=== PATIENT | male | born 1960 | race African-American/Black ===

== ENCOUNTER 2021-08-06 11:58 | Inpatient (IN) | payer OTHER ==
[~2021-08-06] VITALS: Ht 185.4 cm; Wt 107.0 kg
[2021-08-06] MEDS ORDERED: FURO40TA5 PO (12:14)
[2021-08-06] MEDS ORDERED: POTA20TA82 PO (12:14)
[2021-08-06] MEDS ORDERED: ASPI-1497 PO (12:15)
[2021-08-06] MEDS ORDERED: ISOS5TAB4 PO (12:15)
[2021-08-06] MEDS ORDERED: HYDR-4133 PO (12:15)
[2021-08-06] MEDS ORDERED: CARV6.2548 PO (12:15)
[2021-08-06] MEDS ORDERED: ATOR10TA69 PO (12:15)
[2021-08-06 13:13] LABS: BASOPHILS % 0.6 % (0.0-2.0); EOSINOPHILS % 1.1 % (0.0-5.0); HEMATOCRIT. 38.5 % (42.0-52.0); MEAN CORPUSCULAR HEMOGLOBIN 26.8 pg (28.0-32.0); MEAN CORPUSCULAR VOLUME 85.9 fL (80.0-94.0); MEAN PLATELET VOLUME 10.4 fl (7.4-10.4); MONOCYTES % 13.9 % (2.0-8.0); NEUTROPHILS % 67.4 % (40.0-76.0); PLATELET 145 x1000/uL (130-400); RED BLOOD CELL COUNT 4.48 mill/uL (4.7-6.1); RED CELL DISTRIBUTION WIDTH 15.8 % (11.6-14.6)
[2021-08-06 13:22] LABS: CHLORIDE 106 mEq/L (98-107)
[2021-08-06 13:23] LABS: INR 1.3; PROTHROMBIN TIME 14.1 sec (9.6-11.0)
[2021-08-06] MEDS ORDERED: FUROSEMIDE 40MG/4ML VIAL IVP ONE (23:00)
[2021-08-06] MEDS ORDERED: LORAZEPAM 2MG/ML CPJ IV PRN (23:15)
[2021-08-06] MEDS ORDERED: HYDRALAZINE 20MG/ML VIAL IV PRN (23:15)
[2021-08-06] MEDS ORDERED: MAGNESIUM/ALUMINUM HYDROXIDE/SIMETHICONE 30ML UDC PO PRN (23:15)
[2021-08-06] MEDS ORDERED: HYDROCODONE/ACETAMINOPHEN 5/325MG TABLET PO PRN (23:15)
[2021-08-06] MEDS ORDERED: CLONIDINE 0.1MG TABLET PO PRN (23:15)
[2021-08-06] MEDS ORDERED: IPRATROPIUM/ALBUTEROL 0.5-3(2.5)MG/3ML NEB HHN PRN (23:15)
[2021-08-06] MEDS ORDERED: ENOXAPARIN 30MG/0.3ML SYR SUBCUT SCH (23:15)
[2021-08-06] MEDS ORDERED: MORPHINE SULFATE 2 MG/ML CPJ (NOT FOR IM USE) IV PRN (23:15)
[2021-08-06] MEDS ORDERED: GUAIFENESIN 200MG/10ML SUGAR FREE UDC PO PRN (23:15)
[2021-08-06] MEDS ORDERED: NALOXONE HCL 0.4MG/ML VIAL IV PRN (23:30)
[2021-08-07] VITALS (7 sets, daily range): BP systolic 121–147; BP diastolic 67–104
[2021-08-07] MEDS: ENOXAPARIN 30MG/0.3ML SYR SUBCUT SCH ×2 (02:09→20:48)
[2021-08-07] MEDS: ACETAMINOPHEN 325MG TABLET PO PRN ×2 (02:44→20:49)
[2021-08-07] MEDS: SODIUM CHLORIDE 0.9% INJ 3ML FLUSH IVF SCH ×3 (06:00→20:49)
[2021-08-07 07:04] LABS: HEMATOCRIT. 36.8 % (42.0-52.0); HEMOGLOBIN. 11.9 g/dL (14.0-18.0); MEAN CORPUSCULAR HEMOGLOBIN 27.5 pg (28.0-32.0); MEAN PLATELET VOLUME 9.9 fl (7.4-10.4); PLATELET 142 x1000/uL (130-400); RED BLOOD CELL COUNT 4.33 mill/uL (4.7-6.1); RED CELL DISTRIBUTION WIDTH 15.5 % (11.6-14.6)
[2021-08-07 07:14] LABS: CHLORIDE 106 mEq/L (98-107)
[2021-08-07 07:23] LABS: CREATINE KINASE 173 IU/L (39-308)
[2021-08-07 07:25] LABS: CREATINE KINASE MB FRACTION < 1.0 ng/mL (0.5-3.6)
[2021-08-07] MEDS: FUROSEMIDE 40MG/4ML VIAL IVP SCH ×2 (09:11→17:47)
[2021-08-07 14:45] LABS: PLATELET ESTIMATE NORMAL
[2021-08-07 16:59] LABS: CREATINE KINASE 170 IU/L (39-308); CREATINE KINASE MB FRACTION < 1.0 ng/mL (0.5-3.6)
[2021-08-08] VITALS: BP 146/93
[2021-08-08 04:00] VITALS: BP 131/93
[2021-08-08] MEDS: SODIUM CHLORIDE 0.9% INJ 3ML FLUSH IVF SCH ×3 (05:18→21:56)
[2021-08-08 08:00] VITALS: BP 132/82
[2021-08-08] MEDS: ENOXAPARIN 30MG/0.3ML SYR SUBCUT SCH (08:20)
[2021-08-08] MEDS: FUROSEMIDE 40MG/4ML VIAL IVP SCH ×2 (08:20→17:10)
[2021-08-08 12:00] VITALS: BP 115/81
[2021-08-08] MEDS ORDERED: ASPIRIN 81MG EC TABLET PO SCH (13:00)
[2021-08-08] MEDS: POTASSIUM CHLORIDE 20MEQ TABLET SR PO SCH (13:23)
[2021-08-08] MEDS: HYDRALAZINE HCL 10MG TABLET PO SCH ×2 (13:23→21:56)
[2021-08-08 16:00] VITALS: BP 142/94
[2021-08-08] MEDS: ISOSORBIDE DINITRATE 10MG TABLET PO SCH ×2 (17:10→17:12)
[2021-08-08] MEDS: ACETAMINOPHEN 325MG TABLET PO PRN (17:10)
[2021-08-08 20:00] VITALS: BP 133/91
[2021-08-08] MEDS: CARVEDILOL 6.25 MG TABLET PO SCH (21:55)
[2021-08-08] MEDS: ATORVASTATIN CALCIUM 10MG TABLET PO SCH (21:56)
[2021-08-09] VITALS: BP 122/78
[2021-08-09 04:00] VITALS: BP 138/92
[2021-08-09] MEDS: SODIUM CHLORIDE 0.9% INJ 3ML FLUSH IVF SCH ×3 (06:47→20:49)
[2021-08-09 08:00] VITALS: BP 131/90
[2021-08-09] MEDS: HYDRALAZINE HCL 10MG TABLET PO SCH ×2 (08:54→20:48)
[2021-08-09] MEDS: CARVEDILOL 6.25 MG TABLET PO SCH ×2 (08:54→20:49)
[2021-08-09] MEDS: ISOSORBIDE DINITRATE 10MG TABLET PO SCH ×3 (08:54→17:00)
[2021-08-09] MEDS: POTASSIUM CHLORIDE 20MEQ TABLET SR PO SCH (08:54)
[2021-08-09] MEDS: FUROSEMIDE 40MG/4ML VIAL IVP SCH ×2 (08:55→17:27)
[2021-08-09] MEDS ORDERED: LIDOCAINE HCL 1% 10 MG/ML 10ML VIAL ONE (09:32)
[2021-08-09] MEDS ORDERED: SODIUM BICARBONATE 4% (2.4MEQ) 5ML VIAL IV ONE (09:32)
[2021-08-09 12:00] VITALS: BP 132/84
[2021-08-09 16:00] VITALS: BP 109/74
[2021-08-09 20:00] VITALS: BP 122/85
[2021-08-09] MEDS: ATORVASTATIN CALCIUM 10MG TABLET PO SCH (20:48)
[2021-08-10] VITALS: BP 118/85
[2021-08-10] MEDS: DIPHENHYDRAMINE 50MG/ML VIAL IV PRN (01:46)
[2021-08-10 04:00] VITALS: BP 114/79
[2021-08-10] MEDS: SODIUM CHLORIDE 0.9% INJ 3ML FLUSH IVF SCH ×3 (05:47→21:48)
[2021-08-10 07:55] VITALS: BP 125/90
[2021-08-10] MEDS: HYDRALAZINE HCL 10MG TABLET PO SCH ×2 (08:35→21:48)
[2021-08-10] MEDS: FUROSEMIDE 40MG/4ML VIAL IVP SCH ×2 (08:35→16:41)
[2021-08-10] MEDS: ISOSORBIDE DINITRATE 10MG TABLET PO SCH ×3 (08:35→16:40)
[2021-08-10] MEDS: CARVEDILOL 6.25 MG TABLET PO SCH ×2 (08:36→21:48)
[2021-08-10] MEDS: POTASSIUM CHLORIDE 20MEQ TABLET SR PO SCH (08:36)
[2021-08-10] MEDS: DOCUSATE SODIUM 100MG CAPSULE PO PRN (08:50)
[2021-08-10 11:23] LABS: HEMATOCRIT. 37.2 % (42.0-52.0); HEMOGLOBIN. 12.1 g/dL (14.0-18.0); MEAN CORPUSCULAR HEMOGLOBIN 27.7 pg (28.0-32.0); MEAN CORPUSCULAR VOLUME 85.4 fL (80.0-94.0); MEAN PLATELET VOLUME 8.8 fl (7.4-10.4); PLATELET 133 x1000/uL (130-400); RED BLOOD CELL COUNT 4.36 mill/uL (4.7-6.1); RED CELL DISTRIBUTION WIDTH 15.7 % (11.6-14.6)
[2021-08-10 11:34] LABS: CHLORIDE 101 mEq/L (98-107)
[2021-08-10 12:00] VITALS: BP 116/74
[2021-08-10 15:53] VITALS: BP 103/73
[2021-08-10 15:59] LABS: PLATELET ESTIMATE NORMAL
[2021-08-10 20:00] VITALS: BP 110/78
[2021-08-10] MEDS: ATORVASTATIN CALCIUM 10MG TABLET PO SCH (21:48)
[2021-08-11] VITALS: BP 112/83
[2021-08-11 04:00] VITALS: BP 124/85
[2021-08-11] MEDS: SODIUM CHLORIDE 0.9% INJ 3ML FLUSH IVF SCH ×3 (06:15→21:42)
[2021-08-11 07:59] VITALS: BP 120/82
[2021-08-11] MEDS: FUROSEMIDE 40MG/4ML VIAL IVP SCH ×2 (08:42→16:12)
[2021-08-11] MEDS: ENOXAPARIN 30MG/0.3ML SYR SUBCUT SCH ×2 (08:42→21:40)
[2021-08-11] MEDS: POTASSIUM CHLORIDE 20MEQ TABLET SR PO SCH (08:42)
[2021-08-11] MEDS: HYDRALAZINE HCL 10MG TABLET PO SCH ×2 (08:43→21:41)
[2021-08-11] MEDS: CARVEDILOL 6.25 MG TABLET PO SCH ×2 (08:43→21:42)
[2021-08-11] MEDS: ISOSORBIDE DINITRATE 10MG TABLET PO SCH ×3 (08:43→16:11)
[2021-08-11 12:00] VITALS: BP 103/74
[2021-08-11 16:00] VITALS: BP 109/77
[2021-08-11 20:00] VITALS: BP 109/75
[2021-08-11] MEDS: ATORVASTATIN CALCIUM 10MG TABLET PO SCH (21:38)
[2021-08-12] VITALS: BP 117/79
[2021-08-12] MEDS: SODIUM CHLORIDE 0.9% INJ 3ML FLUSH IVF SCH ×3 (06:08→21:31)
[2021-08-12 06:11] LABS: BASOPHILS % 0.5 % (0.0-2.0); HEMATOCRIT. 37.5 % (42.0-52.0); HEMOGLOBIN. 12.4 g/dL (14.0-18.0); LYMPHOCYTES % 12.9 % (20.0-50.0); MEAN CORPUSCULAR VOLUME 84.5 fL (80.0-94.0); MEAN PLATELET VOLUME 9.9 fl (7.4-10.4); MONOCYTES % 10.3 % (2.0-8.0); NEUTROPHILS % 75.3 % (40.0-76.0); PLATELET 152 x1000/uL (130-400); RED BLOOD CELL COUNT 4.43 mill/uL (4.7-6.1); RED CELL DISTRIBUTION WIDTH 16.3 % (11.6-14.6)
[2021-08-12 08:00] VITALS: BP 107/82
[2021-08-12] MEDS: ISOSORBIDE DINITRATE 10MG TABLET PO SCH ×4 (09:00→17:11)
[2021-08-12] MEDS: POTASSIUM CHLORIDE 20MEQ TABLET SR PO SCH (09:00)
[2021-08-12] MEDS: FUROSEMIDE 40MG/4ML VIAL IVP SCH ×2 (09:00→16:50)
[2021-08-12] MEDS: CARVEDILOL 6.25 MG TABLET PO SCH ×2 (09:00→21:30)
[2021-08-12] MEDS: HYDRALAZINE HCL 10MG TABLET PO SCH ×2 (09:00→21:30)
[2021-08-12 12:00] VITALS: BP 117/85
[2021-08-12] MEDS: ENOXAPARIN 30MG/0.3ML SYR SUBCUT SCH ×2 (12:25→21:31)
[2021-08-12 16:00] VITALS: BP 119/86
[2021-08-12] MEDS: DOCUSATE SODIUM 100MG CAPSULE PO PRN (16:50)
[2021-08-12 20:00] VITALS: BP 121/84
[2021-08-12] MEDS: ATORVASTATIN CALCIUM 10MG TABLET PO SCH (21:30)
[2021-08-13] VITALS (8 sets, daily range): BP systolic 102–122; BP diastolic 67–90
[2021-08-13] MEDS: SODIUM CHLORIDE 0.9% INJ 3ML FLUSH IVF SCH ×2 (06:20→21:08)
[2021-08-13] MEDS: POTASSIUM CHLORIDE 20MEQ TABLET SR PO SCH (09:48)
[2021-08-13] MEDS: HYDRALAZINE HCL 10MG TABLET PO SCH ×2 (09:48→21:10)
[2021-08-13] MEDS: ISOSORBIDE DINITRATE 10MG TABLET PO SCH ×3 (09:48→17:00)
[2021-08-13] MEDS: FUROSEMIDE 40MG/4ML VIAL IVP SCH ×2 (09:48→17:00)
[2021-08-13] MEDS: CARVEDILOL 6.25 MG TABLET PO SCH (09:50)
[2021-08-13] MEDS: ENOXAPARIN 30MG/0.3ML SYR SUBCUT SCH ×2 (12:09→23:06)
[2021-08-13] MEDS ORDERED: DIGOXIN 500MCG/2ML AMP IV NR ×2 (18:00→22:00)
[2021-08-13] MEDS: ONDANSETRON HCL 4MG/2ML INJ IV PRN (18:11)
[2021-08-13] MEDS ORDERED: AMIODARONE HCL 900 MG in DEXT 5% WATER 500 ML IV PRN (19:00)
[2021-08-13] MEDS ORDERED: AMIODARONE HCL 150 MG in DEXT 5% WATER 100 ML IV NR (19:00)
[2021-08-13] MEDS ORDERED: AMIODARONE HCL 150 MG in DEXT 5% WATER 100 ML IV ONE (19:30)
[2021-08-13] MEDS ORDERED: ACETAMINOPHEN 650MG SUPP PR PRN (20:15)
[2021-08-13] MEDS ORDERED: ENOXAPARIN 40MG/0.4ML SYR SUBCUT SCH (20:15)
[2021-08-13] MEDS ORDERED: ENOXAPARIN 120MG/0.8ML SYR SUBCUT SCH (21:00)
[2021-08-13] MEDS: SODIUM CHLORIDE 0.9% 250 ML IV NR ×2 (21:00→21:09)
[2021-08-13] MEDS: ATORVASTATIN CALCIUM 10MG TABLET PO SCH (21:10)
[2021-08-13] MEDS: CARVEDILOL 12.5MG TABLET PO SCH (21:11)
[2021-08-13 22:21] LABS: CLARITY URINE CLEAR (CLEAR); COLOR URINE DARK YELLOW (YELLOW); KETONES URINE TRACE (NEGATIVE); LEUKOCYTE ESTERASE URINE TRACE (NEGATIVE); NITRITE URINE POSITIVE (NEGATIVE); OCCULT BLOOD URINE TRACE (NEGATIVE); PH URINE 5.5 (4.5-8.0); PROTEIN URINE 2+ (NEGATIVE); SPECIFIC GRAVITY URINE 1.018 (1.005-1.030)
[2021-08-14] VITALS: BP 115/67
[2021-08-14] MEDS: ONDANSETRON HCL 4MG/2ML INJ IV PRN (00:44)
[2021-08-14] MEDS: DIPHENHYDRAMINE 50MG/ML VIAL IV PRN (00:51)
[2021-08-14 04:00] VITALS: BP 103/73
[2021-08-14] MEDS: SODIUM CHLORIDE 0.9% INJ 3ML FLUSH IVF SCH ×2 (06:16→13:23)
[2021-08-14 08:00] VITALS: BP 107/73
[2021-08-14] MEDS: HYDRALAZINE HCL 10MG TABLET PO SCH (09:00)
[2021-08-14] MEDS: CARVEDILOL 12.5MG TABLET PO SCH (09:00)
[2021-08-14] MEDS: ISOSORBIDE DINITRATE 10MG TABLET PO SCH ×2 (09:00→13:23)
[2021-08-14] MEDS: POTASSIUM CHLORIDE 20MEQ TABLET SR PO SCH (09:41)
[2021-08-14] MEDS: ENOXAPARIN 30MG/0.3ML SYR SUBCUT SCH (09:41)
[2021-08-14] MEDS: FUROSEMIDE 40MG/4ML VIAL IVP SCH (09:41)
[2021-08-14] MEDS ORDERED: CEFTRIAXONE 1 G PREMIX 50 ML IV SCH (10:00)
[2021-08-14] MEDS ORDERED: CEFTRIAXONE 1,000 MG in DEXTROSE 5% WATER 50 ML IV SCH (11:00)
[2021-08-14 12:00] VITALS: BP 112/73
[2021-08-14 16:17] VITALS: BP 117/66
== END 2021-08-14 17:15 | disposition home or self-care (01) | DRG 291 ==
LOC: ER 11:58 → 7EST 22:58 → EDBEDREQ 23:10 → EDBEDREQTM 23:10 → ENRESERV 23:45
PROVIDERS: ADMIT Internal Medicine; ATTEND Internal Medicine
DX: I11.0 Hypertensive heart disease with heart failure (principal); J96.00 Acute respiratory failure, unspecified whether with hypoxia or hypercapnia; N17.0 Acute kidney failure with tubular necrosis; I50.23 Acute on chronic systolic (congestive) heart failure; Z20.822 Contact with and (suspected) exposure to COVID-19; E78.5 Hyperlipidemia, unspecified; R00.0 Tachycardia, unspecified; Z79.84 Long term (current) use of oral hypoglycemic drugs; Z79.899 Other long term (current) drug therapy; Z79.82 Long term (current) use of aspirin; Z90.49 Acquired absence of other specified parts of digestive tract
CPT/HCPCS: 36415; 71045; 76705; 80048; 80053; 81003; 82550; 82553; 82962; 83880; 84443; 84484; 85025; 87426; 93005; 93970; 99285; J0282; J0360; J0696; J1160; J1200; J1650; J1940; J2270; J2405; J3490; J7060

== ENCOUNTER 2021-08-19 11:54 | Emergency (ER) | payer OTHER ==
[~2021-08-19] VITALS: Ht 185.4 cm; Wt 105.0 kg
[~2021-08-19 11:54] MED LIST: ASPI-1497 PO; ATOR10TA69 PO; CARV6.2548 PO; FURO40TA5 PO; HYDR-4133 PO; ISOS5TAB4 PO; POTA20TA82 PO
[2021-08-19 12:22] VITALS: BP 128/82
[2021-08-19] MEDS ORDERED: CEPH500C2 MT (19:57)
== END 2021-08-19 20:12 | disposition home or self-care (01) ==
LOC: ER 11:54
DX: L03.116 Cellulitis of left lower limb (principal); I11.0 Hypertensive heart disease with heart failure; I50.9 Heart failure, unspecified
CPT/HCPCS: 93922; 93971; 99285

== ENCOUNTER 2022-06-05 16:44 | Emergency (ER) | payer SELFPAY ==
[~2022-06-05] VITALS: Ht 185.4 cm; Wt 103.0 kg
[~2022-06-05 16:44] MED LIST changes: +CEPH500C2 MT; +POTA-204 PO; -POTA20TA82 PO
[2022-06-05 16:50] VITALS: BP 143/96
[2022-06-05] MEDS ORDERED: ACETAMINOPHEN 325MG TABLET PO ONE (20:00)
[2022-06-05] MEDS ORDERED: IBUPROFEN 400MG TABLET PO ONE (20:00)
[2022-06-05] MEDS ORDERED: TOPUD PO (21:30)
[2022-06-05] MEDS ORDERED: IBUP-2028 MT (21:30)
== END 2022-06-05 22:01 | disposition home or self-care (01) ==
LOC: ER 16:44
DX: S99.812A Other specified injuries of left ankle, initial encounter (principal); M79.672 Pain in left foot; I11.0 Hypertensive heart disease with heart failure; I50.9 Heart failure, unspecified; E78.00 Pure hypercholesterolemia, unspecified; W01.0XXA Fall on same level from slipping, tripping and stumbling without subsequent striking against object, initial encounter; Y93.01 Activity, walking, marching and hiking; Y92.89 Other specified places as the place of occurrence of the external cause; Z79.899 Other long term (current) drug therapy; Z79.82 Long term (current) use of aspirin
CPT/HCPCS: 73610; 73630; 99284; Z7610